=== PATIENT | female | born 1955 | race Caucasian/White ===

== ENCOUNTER 2021-04-17 09:18 | Outpatient (CLI) | payer BC, MEDICARE | END 2021-04-17 09:19 | disposition home or self-care (01) | PROVIDERS: ATTEND Otolaryngology Plastic Surgery within the Head & Neck | DX: I69.891 Dysphagia following other cerebrovascular disease (principal); R13.14 Dysphagia, pharyngoesophageal phase | CPT/HCPCS: 74230 ==

== ENCOUNTER → 2025-06-07 | Day surgery (SDC) | payer MEDICARE | LOC: LABBT 13:19 → SDC 13:20 | PROVIDERS: ATTEND Internal Medicine Gastroenterology | PROC: 4A1 Measurement and Monitoring, Physiological Systems, Monitoring (ICD-10-PCS; principal; 2025-06-07) | DX: K21.9 Gastro-esophageal reflux disease without esophagitis (principal) | CPT/HCPCS: 91010; 91034 ==